=== PATIENT | male | born 1975 | race African-American/Black ===

== ENCOUNTER 2018-09-01 04:10 | Emergency (ER) | payer OTHER ==
[2018-09-01] MEDS ORDERED: TENOFOVIR DISOPROXIL FUMARATE 300 MG TABLET PO STA (04:23)
[2018-09-01] MEDS ORDERED: DOLUTEGRAVIR SODIUM 50 MG TABLET (NON-FORMULARY) PO STA (04:24)
[2018-09-01] MEDS ORDERED: EMTRICITABINE 200 MG CAPSULE PO STA (04:24)
[2018-09-01] MEDS ORDERED: HIV POST EXPOSURE PROPHYLAXIS KIT PO ONE (04:32)
[2018-09-01 04:51] VITALS: BP 122/78; PULSE 85; TEMP 98.2; BMI 27.2
--- NOTE | 2018-09-01 05:29 | PDOC ---
Post Exposure HPI - General Chief Complaint: Blood/Body Fluid Exposure [facility] Stated Complaint: INJURY-[facility] E[facility] Time Seen by Provider: 09/01/18 04:15 - History of Present Illness Initial Comments: 09/01/18 05:24 42 M with no PMH presents to ED with fingerstick injury while drawing blood of pt with unknown HIV status. Pt states he had just drawn the source pt's blood with a butterfly needle and subsequently pricked his finger with the needle. He was able to express a small amount of blood from his finger when he squeezed it. Past History - Past Medical History Allergies/Adverse Reactions: Allergies Allergy/AdvReac Type Severity Reaction Status Date / Time No Known Allergies Allergy Verified 09/01/18 04:46 Home Medications: Ambulatory Orders RX: Hiv Post Exposure Prophylaxis 1 each PO DAILY #1 kit 09/01/18 - Suicide/Smoking/Psychosocial Hx Smoking History: Never smoked Have you smoked in the past 12 months: No Information on smoking cessation initiated: No Hx Alcohol Use: No Drug/Substance Use Hx: No Review of Systems - Review of Systems Comments:: 09/01/18 05:29 "GENERAL/CONSTITUTIONAL: No fever or chills. No weakness. HEAD, EYES, EARS, NOSE AND THROAT: No change in vision. No ear pain or discharge. No sore throat. CARDIOVASCULAR: No chest pain, no shortness of breath, no loss of consciousness RESPIRATORY: No cough, wheezing, or hemoptysis. GASTROINTESTINAL: No nausea, vomiting, diarrhea or constipation. GENITOURINARY: No dysuria, frequency, or change in urination. MUSCULOSKELETAL: No joint or muscle swelling or pain. No neck or back pain. SKIN: No rash NEUROLOGIC: No vertigo, no change in strength/sensation. ENDOCRINE: No increased thirst. No abnormal weight change. HEMATOLOGIC/LYMPHATIC: No anemia, easy bleeding, or history of blood clots. ALLERGIC/IMMUNOLOGIC: No hives or skin allergy. *Physical Exam - Vital Signs Last Vital Signs Temp Pulse Resp BP Pulse Ox 98.2 F 85 18 122/78 98 09/01/18 04:10 09/01/18 04:10 09/01/18 04:10 09/01/18 04:10 09/01/18 04:10 - Physical Exam Comments: 09/01/18 05:29 "GENERAL: Awake, alert, and fully oriented, in no acute distress. HEAD: No signs of trauma EYES: PERRLA, EOMI, sclera anicteric, conjunctiva clear ENT: Auricles normal inspection, hearing grossly normal, nares patent, oropharynx clear without exudates. Moist mucosa NECK: Nontender, no stepoffs, Normal ROM, supple, no lymphadenopathy, JVD, or masses LUNGS: Breath sounds equal, clear to auscultation bilaterally. No wheezes, and no crackles HEART: Regular rate and rhythm, normal S1 and S2, no murmurs, rubs or gallops ABDOMEN: Soft, nontender, normoactive bowel sounds. No guarding, no rebound. No masses EXTREMITIES: Normal range of motion, no edema. No clubbing or cyanosis. No cords, erythema, or tenderness NEUROLOGICAL: Cranial nerves II through XII intact. 5/5 strength and sensation in all extremities, Normal speech, normal gait, normal cerebellar function SKIN: Warm, Dry, normal turgor, no rashes or lesions noted. Medical Decision Making - Medical Decision Making 09/01/18 05:29 42 M with fingerstick injury, exposure to blood of pt with unknown HIV/ hepatitis status. Source pt is high-risk, so will initiate PEP. HIV and Hep panel sent on source pt. - Labs, HIV, hepatitis panel - Post-exposure prophylaxis initiated - Will f/u source pt's tests, DC PEP if HIV negative 09/01/18 06:39 Source pt's HIV test negative, will DC PEP Pending Heptatitis panel Pt does not wish to have bloodwork done. 09/01/18 07:03 Source pt's hep panel canceled by lab. Will attempt to re-send. Pt consents to having hepatitis panel sent. 09/01/18 07:17 Will f/u hep panel and call pt with results Pt is well appearing, with normal vitals. Clinically stable for DC at this time. I discussed the physical exam findings, ancillary test results and final diagnoses with the patient. I answered all of the patient's questions. The patient was satisfied with the care received and felt comfortable with the discharge plan and treatment plan. The patient agrees to follow up with the primary care physician within 24-72 hours. 09/03/18 16:49 Source pt's HIV and hepatitis panels all negative. *DC/Admit/Observation/Transfer Diagnosis at time of Disposition: Needlestick injury accident with exposure to body fluid - Discharge Dispostion Disposition: HOME Condition at time of disposition: Fair - Prescriptions Prescriptions: RX: Hiv Post Exposure Prophylaxis 1 each PO DAILY #1 kit - Referrals - Patient Instructions Printed Discharge Instructions: How to Handle Body Fluid Exposure -- Healthcare Worker Additional Instructions: Please follow up with your primary doctor in 3 weeks for repeat testing. - Post Discharge Activity Forms/Work/School Notes: Back to Work - Attestations Physician Attestion: 09/01/18 05:31 I, Dr. Rene Castañeda MD, attest that this document has been prepared under my direction and personally reviewed by me in its entirety. I further attest, that it accurately reflects all work, treatment, procedures and medical decision -making performed by me.
[2018-09-01] MEDS ORDERED: HIV POST EXPOSURE PROPHYLAXIS KIT NR ONE (05:32)
[2018-09-01 09:41] LABS: ALBUMIN 4.3 g/dl (3.4-5.0); ALK PHOS 66 U/L (45-117); ANION GAP 9 MMOL/L (8-16); BILIRUBIN,TOTAL 0.7 mg/dL (0.2-1); BLOOD UREA NITROGEN 15 mg/dL (7-18); CHLORIDE 102 mmol/L (98-107); CO2 27 mmol/L (21-32); CREATININE 1.1 mg/dL (0.55-1.3); GLUCOSE,RANDOM 112 mg/dL (74-106); POTASSIUM 4.1 mmol/L (3.5-5.1); SGOT/AST 21 U/L (15-37); SGPT/ALT 32 U/L (13-61); SODIUM 137 mmol/L (136-145); TOT PROT 7.9 g/dl (6.4-8.2)
== END 2018-09-01 07:31 | disposition home or self-care (01) ==
LOC: JER 04:10
DX: Z77.21 Contact with and (suspected) exposure to potentially hazardous body fluids (principal); S61.239A Puncture wound without foreign body of unspecified finger without damage to nail, initial encounter; W46.1XXA Contact with contaminated hypodermic needle, initial encounter; Y93.89 Activity, other specified; Y92.238 Other place in hospital as the place of occurrence of the external cause; Y99.0 Civilian activity done for income or pay
CPT/HCPCS: 80053; 99281-25